=== PATIENT | male | born 1980 | race Caucasian/White ===

== ENCOUNTER 2017-01-24 14:59 | Emergency (ER) | payer OTHER ==
[~2017-01-24] VITALS: Wt 86.0 kg
--- NOTE | 2017-01-24 15:21 | EN ---
Date/Time of Note Date/Time of Note DATE: 01/24/17 TIME: 15:19 ER Progress Note Patient was seen in RME by myself. Patient stated that he was fixing some light bulbs on the ceiling 4 days ago. Patient is unsure if he has any foreign bodies in his eyes. Erythema of the L eye noted. Patient will be seen in ED2 for further evaluation by ED to provider pending room assignment. Patient is stable at this time. OLU Porter JISSILLE PA-C Jan 24, 2017 15:21
[2017-01-24] MEDS ORDERED: FLUORESCEIN STRIP ONE (15:41)
--- NOTE | 2017-01-24 15:54 | ERD ---
ER Documentation Chief Complaint Date/Time DATE: 01/24/17 TIME: 15:53 Chief Complaint EYE REDNESS X 4 DAYS HPI 36-year-old male complaining of left eye pain 4 days. Patient stated that he was fixing some classes well and dust particle flew into his left eye. He is having pain and redness of the left eye since. He also feels something is in his left eye. Denies eye discharge. Denies decrease in vision. ROS All systems reviewed and are negative except as per history of present illness. Medications Home Meds No Active Prescriptions or Reported Meds Allergies Allergies: Coded Allergies: No Known Allergy (Unverified , 04/24/12) PMhx/Soc Medical and Surgical Hx: pt denies Medical Hx History of Surgery: No Anesthesia Reaction: No Hx Neurological Disorder: No Hx Respiratory Disorders: No Hx Cardiac Disorders: No Hx Psychiatric Problems: No Hx Miscellaneous Medical Probl: No Hx Alcohol Use: No Hx Substance Use: No Hx Tobacco Use: No Smoking Status: Never smoker Physical Exam Vitals Vital Signs Date Time Temp Pulse Resp B/P Pulse Ox O2 Delivery O2 Flow Rate FiO2 01/24/17 15:01 98.0 75 20 130/79 99 Physical Exam General impression: Well-developed, well-nourished. Alert, oriented, in no acute distress Head: Normocephalic, atraumatic. Eyes: PERRL, EOM normal. Left conjunctiva injected, no foreign body noted. Respiration: Normal respiratory effort. Lungs clear to auscultate bilaterally. No wheezes, rales or rhonchi. Cardiovascular: Regular rate and rhythm. No murmurs or extra heart sounds. Neuro: Mental status normal, speech normal. [employer] grossly intact. Skin: Normal turgor. No rash or lesions. Psych: Normal mood and affect. Results 24 hrs Current Medications Medications (Trade) Dose Ordered Sig/Kanika Route PRN Reason Start Time Stop Time Status Last Admin Dose Admin Fluorescein Sodium (Igfpg-H-Egnhd) 1 strip ONCE ONCE LEFT EYE 01/24/17 16:00 01/24/17 16:01 Fluorescein Sodium (Edvzv-P-Nbomh) 1 strip STK-MED ONCE .ROUTE 01/24/17 15:41 01/24/17 15:42 DC Procedures/MDM Tetracaine ophthalmic solution was instilled into patient's left eye. Fluoresceins dye was then applied. Patient was examined under Wood's lamp. Dye uptake was noted at 6 o'clock position within the iris border. No waterfall signs. Patient appears to have a corneal abrasion. No foreign body is seen. No sign of bacterial conjunctivitis. Patient appears well, stable for discharge and outpatient management. Patient advised to apply cool compresses to the fact that I. Medical decision making shared with patient and family. Education provided to patient and family. Patient and family expressed understanding of the plan. Medications on discharge: None. Follow-up: Primary care provider in 2-3 days or return to ED if worse. Departure Diagnosis: Primary Impression: Corneal abrasion Encounter type: initial encounter Laterality: left Qualified Code: S05.02XA - Corneal abrasion, left, initial encounter Condition: Good Patient Instructions: Corneal Abrasion Referrals: [facility] YOU HAVE RECEIVED A MEDICAL SCREENING EXAM AND THE RESULTS INDICATE THAT YOU DO NOT HAVE A CONDITION THAT REQUIRES URGENT TREATMENT IN THE EMERGENCY DEPARTMENT. FURTHER EVALUATION AND TREATMENT OF YOUR CONDITION CAN WAIT UNTIL YOU ARE SEEN IN YOUR DOCTORS OFFICE WITHIN THE NEXT 1-2 DAYS. IT IS YOUR RESPONSIBILITY TO MAKE AN APPOINTMENT FOR FOLOW-UP CARE. IF YOU HAVE A PRIMARY DOCTOR --you should call your primary doctor and schedule an appointment IF YOU DO NOT HAVE A PRIMARY DOCTOR YOU CAN CALL OUR PHYSICIAN REFERRAL HOTLINE AT IF YOU CAN NOT AFFORD TO SEE A PHYSICIAN YOU CAN CHOSE FROM THE FOLLOWING [facility] [address] [facility]. [facility] [place] [address] [facility] [address] [facility] [facility] [address] [facility] [facility] [address] [facility]. [facility]. [address] [facility] Hours: Mon - Fri 9:00 AM - 5:00 PM Additional Instructions: Llame al doctor MAANA y linda juarez DAMON PARA DENTRO DE 2-3 FALLON.Dgale a la secretaria que nosotros le instruimos hacer esta damon.Avise o llame si montoya condicin se empeora antes de la damon. Regresa aqui si peor o no mejor. YAMILA HAWKINS. MATTHIAS Jan 24, 2017 15:54
[2017-01-24] MEDS ORDERED: FLUORESCEIN STRIP LEFT EYE ONE (16:00)
== END 2017-01-24 16:18 | disposition home or self-care (01) ==
LOC: FTE 14:59 → E/R 16:18
DX: S05.02XA Injury of conjunctiva and corneal abrasion without foreign body, left eye, initial encounter (principal); X58.XXXA Exposure to other specified factors, initial encounter; Y92.9 Unspecified place or not applicable
CPT/HCPCS: Z7502; Z7610; 99283

== ENCOUNTER 2018-08-17 16:24 | Emergency (ER) | END 2018-08-17 17:44 | disposition home or self-care (01) ==